=== PATIENT | female | born 1965 | race Caucasian/White ===

== ENCOUNTER 2022-10-13 06:45 | Day surgery (SDC) | payer OTHER ==
[~2022-10-13] VITALS: Ht 157.5 cm; Wt 73.9 kg
[~2022-10-13 06:45] MED LIST: ACID REDUCER20 M1 PO; CLONAZEPAM0.5 MG PO; HORIZANT300 MG PO; HYDRODIURIL12.5 MG PO; NAPR500T14 PO; ZESTRIL10 M1 PO
== END 2022-10-13 20:50 | disposition home or self-care (01) ==
LOC: CIR.AMB 06:45
PROVIDERS: ATTEND Surgery
DX: D48.61 Neoplasm of uncertain behavior of right breast (principal); N60.81 Other benign mammary dysplasias of right breast; N64.89 Other specified disorders of breast; N60.31 Fibrosclerosis of right breast; Z20.822 Contact with and (suspected) exposure to COVID-19; Z88.8 Allergy status to other drugs, medicaments and biological substances; I10 Essential (primary) hypertension
CPT/HCPCS: 19301; 19281; L8699